=== PATIENT | male | born 1990 | race Caucasian/White ===

== ENCOUNTER 2018-02-02 20:31 | Emergency (ER) | payer OTHER, SELFPAY ==
[2018-02-02 20:32] VITALS: BP 170/79; PULSE 80; RESP 16; TEMP 36.9; BMI 46.1
--- NOTE | 2018-02-02 21:07 | ED.VISSUMM ---
- ER Visit Summary Date of Service: 02/02/18 Chief Complaint: Splinter plantar surface left foot near heel History of Present Illness: The patient is a 27 M who was walking in an old home with socks only. He has a splinter undersurface of left foot. He is not diabetic. He has no medical problems. Is on no immunosuppressive meds. This occurred prior to arrival. Physical Examination: There is a large splinter measuring 3 mm x 3 cm plantar surface left foot. There is no evidence infection i.e. erythema, warmth, induration or drainage. DP and PT pulses are palpable. Test Results: None Emergency Department Course and Treatment: Will anesthetized by posterior tibial nerve and sural nerve block. Small incision was made in attempt to pull the splinter out. This was unsuccessful. Incision was made the entire length of the splinter. Smaller than was removed successfully. There was a small fragment that remained that was irrigated out. Treatment Plan: Posterior tibial nerve and sural nerve block and incision to remove splinter. Patient will receive opiate analgesia prior to discharge and has been instructed follow-up with his doctor in 2 days for wound check. Since this was a superficial splinter in the dermis he was not placed on antibiotics. Disposition: Discharged to home with spouse in improved and stable condition Impression: Splinter plantar surface left foot. This note was generated with [employer] dictation software. It may contain incorrect words, spelling, and punctuation that were not noted in review of the chart prior to signing ED Disposition - Plan for ED Patient: Disposition: Home or Assisted Living Chief Complaint: Lower Extremity Injury Instructions: ED Foreign Body Soft Tissue Removed Referrals: Care Physician,No Primary [Primary Care Provider] - Boyd Prather MD [STAFF PHYSICIAN] - 2 Days for wound check
[2018-02-02] MEDS: oxyCODONE 5 MG Tablet PO (22:40)
[2018-02-02 22:46] VITALS: BP 137/88; PULSE 91; RESP 18; O2SAT 97
== END 2018-02-02 22:46 | disposition home or self-care (01) ==
PROVIDERS: Emergency Provider Emergency Medicine
DX: S90.852A Superficial foreign body, left foot, initial encounter (principal); E66.9 Obesity, unspecified; X58.XXXA Exposure to other specified factors, initial encounter; Y93.01 Activity, walking, marching and hiking; Y92.009 Unspecified place in unspecified non-institutional (private) residence as the place of occurrence of the external cause; Y99.8 Other external cause status
CPT/HCPCS: 10120; 99282

== ENCOUNTER → 2024-08-18 | Outpatient (CLI) | payer OTHER, SELFPAY | END | disposition home or self-care (01) | LOC: SL 10:13 | PROVIDERS: PCP Nurse Practitioner Family; Referring Provider Nurse Practitioner Family; Visit Provider Nurse Practitioner Family | DX: G47.19 Other hypersomnia (principal); E66.01 Morbid (severe) obesity due to excess calories; R06.83 Snoring; Z82.0 Family history of epilepsy and other diseases of the nervous system | CPT/HCPCS: 95806 ==

== ENCOUNTER → 2025-01-02 | Outpatient (CLI) | payer BC, SELFPAY | END | disposition home or self-care (01) | PROVIDERS: PCP Nurse Practitioner Family; Visit Provider Nurse Practitioner Family | DX: Z46.89 Encounter for fitting and adjustment of other specified devices (principal) ==

== ENCOUNTER → 2025-07-17 | Outpatient (CLI) | payer BC, SELFPAY ==
[2025-07-17 17:56] LABS: Hematocrit 39.4 % (40-54); Hemoglobin 12.2 g/dL (13.0-16.5); Immature Granulocytes Count 0.020 X10^3/uL (0.0-0.0); Mean Corp Hgb Conc 31.0 g/dL (32-36); Mean Corpuscular Volume 82.4 fL (80-94); Mean Platelet Vol. 9.6 fl (6.2-12.0); NRBC Flagged by Analyzer 0 % (0-5); Platelet Count 356 K/mm3 (150-450); RBC Distribution Width CV 15.0 % (11.6-14.6); RBC Distribution Width SD 45.1 fl (35.1-43.9); Red Blood Count 4.78 M/mm3 (4.6-6.2); White Blood Count 8.9 K/mm3 (4.4-11.0)
[2025-07-17 18:17] LABS: AST(SGOT) 22 U/L (<=37); Alanine Aminotransfer ALT/SGPT 22 U/L (<=46); Albumin, Serum 4.0 g/dL (3.5-5.0); Alkaline Phosphatase 69 U/L (40-129); Anion Gap 11 (5-15); BUN 18 mg/dL (4-19); BUN/Creat Ratio 22.1 RATIO (10-20); Calcium,Total 9.3 mg/dL (7.6-11.0); Carbon Dioxide 25.0 mmol/L (21.0-32.0); Chloride 102 mmol/L (98-108); Globulin 3.5 g/dL (2.2-4.2); Glucose 82 mg/dL (70-99); Magnesium 2.1 mg/dL (1.5-2.2); Potassium 4.0 mmol/L (3.3-5.1); Vitamin B12 730 pg/mL (180-914); Vitamin D,25 Hydroxy 16.1 ng/mL (30-100)
[2025-07-17 18:53] LABS: Cholesterol 144 mg/dL (<=200); Low Density Lipoprotein Calc. 92 mg/dL; Triglycerides 67 mg/dL; Very Low Density Lipoprotein 13 mg/dL (5-40); cholesterol:hdl ratio screen 3.76
== END | disposition home or self-care (01) ==
LOC: BFHLAB 14:34
PROVIDERS: PCP Nurse Practitioner Family; Visit Provider Nurse Practitioner Family
DX: Z00.01 Encounter for general adult medical examination with abnormal findings (principal); R53.83 Other fatigue; R25.2 Cramp and spasm
CPT/HCPCS: 36415; 80053; 80061; 82306; 82607; 83735; 84403; 84439; 84443; 85025